=== PATIENT | male | born 1970 | race Caucasian/White ===

== ENCOUNTER 2021-12-01 15:11 | Emergency (ER) | payer SELFPAY ==
[2021-12-01 16:29] LABS: BASO % 0.4 % (0.0-2.0); EOS % 0.3 % (0.0-4.0); GRAN # 4.6 K/mm3 (1.4-6.5); GRAN % 63.3 % (42.2-75.2); HEMATOCRIT 41.3 % (42.0-52.0); HEMOGLOBIN 14.1 g/dl (13.5-18.0); MEAN CELL VOLUME 96 fl (80.0-100.0); MEAN CORPUSCULAR HEMOGLOBIN 33 pg (27-31); MEAN CORPUSCULAR HGB CONC 34 g/dl (33.0-37.0); MEAN PLATELET VOLUME 10.3 fl (7.4-10.4); MONO # 0.6 K/mm3 (0.1-0.6); MONO % 7.7 % (1.7-9.3); PLATELET COUNT 168 K/mm3 (130-400); RED BLOOD COUNT 4.32 M/mm3 (4.20-5.60)
[2021-12-01 16:47] LABS: ALANINE AMINOTRANSFERASE 14 U/L (0-55); ALBUMIN 3.8 gm/dL (3.5-5.0); ALKALINE PHOSPHATASE 76 U/L (40-150); ANION GAP 8 mmol/L (7-16); AST,SGOT 22 U/L (5-34); BILIRUBIN,TOTAL 0.7 mg/dL (0.2-1.2); BLOOD UREA NITROGEN 18 mg/dL (9-21); CALCIUM 8.7 mg/dL (8.4-10.2); CARBON DIOXIDE 24 mmol/L (22-29); CHLORIDE 105 mmol/L (98-107); CREATININE, serum 1.13 mg/dL (0.72-1.25); GLUCOSE 124 mg/dL (70-99); POTASSIUM 3.6 mmol/L (3.5-4.5); SODIUM 137 mmol/L (136-145); TOTAL PROTEIN 6.9 gm/dL (6.2-8.1)
[2021-12-01 16:48] LABS: ACETAMINOPHEN < 1.0 ug/mL (10-30); ALCOHOL(ethanol),MEDICAL < 10 mg/dL (0-10); SALICYLATE < 5.0 mg/dL (15.0-30.0)
[2021-12-02 10:48] LABS: TRICYCLIC ANTIDEPRESS URINE NEGATIVE
[2021-12-02] MEDS ORDERED: BIKTARVY 50-201 EACH (18:02)
--- NOTE | 2021-12-04 09:59 | NUR ---
[facility] contacted and rep states that since the patient has already been deemed involuntary that they will not rescreen the patient. Argument made that the patient's aggressiveness has significantly declined and that he has requested a rescreen due to wanting to cooperate with his mental health needs. Fajardo noting that the documentation from the initial screen has discrepancies throughout listing the patient as a "her". Awaiting call back from [facility] suervisor. Officer present voices his willingness to provide support if needed.
--- NOTE | 2021-12-04 11:47 | NUR ---
Raul contacted [facility] office and spoke with a Maria Teresa Schaefer who states they have not received the patient's information at this time, but that since the patient was not screened in [facility]. his case would not be filed there. [place] is declining the case due to the patient's home address listed as [place]. JACKIE notified who is in the process of having our local psychiatrist come in and screen this patient. This SW contacts [facility] as it is documented the patient was treated there in 2019. Request made for the patient's medican list be faxed. litigation services manager fax number provided.
--- NOTE | 2021-12-04 16:26 | NUR ---
Patient's medication list from [facility] received and provided to the ER physician. Patient last seen at [facility] in 2019.
[2021-12-06] MEDS ORDERED: ZYPREXA ZYD10 MG/TAB PO (20:57)
[2021-12-06] MEDS ORDERED: SEROQUEL 200MG200 MG PO (20:57)
[2021-12-06] MEDS ORDERED: TRILEPTAL 300M300 MG PO (20:57)
[2021-12-06 21:10] VITALS: BP 118/73; PULSE 79; TEMP 97.3
== END 2021-12-06 21:11 | disposition home or self-care (01) ==
LOC: COL.ER 15:11
PROVIDERS: Student in an Organized Health Care Education/Training Program
DX: F25.9 Schizoaffective disorder, unspecified (principal); U07.1 COVID-19
CPT/HCPCS: J1200; J1630; J2060; J3486